=== PATIENT | male | born 1955 | race Caucasian/White ===

== ENCOUNTER 2020-03-27 06:18 | Outpatient (CLI) | payer MEDICARE, OTHER ==
[2020-03-27 11:01] LABS: #Eosinphils 0.1 thou/uL (0.0-0.7); #Lymphocytes 1.6 thou/uL (1.20-3.40); #Monocytes 0.5 thou/uL (0.11-0.59); #Neutrophils 3.2 thou/uL (1.40-6.50); %Basophils 0.5 % (0.0-1.0); %Eosinophils 1.2 % (0.0-10.0); %Lymphocytes 29.2 % (21.0-51.0); %Monocytes 10.1 % (0.0-10.0); Hemoglobin 15.8 g/dL (14.0-18.0); Mean Corpuscular HGB CONC 33.2 g/dL (32.0-36.0); Mean Corpuscular Hemoglobin 33.4 pg (27.0-31.0); Mean Platelet Volume 9.3 fL (7.4-10.4); Platelet Count 158 thou/uL (130-400); RBC Distribution Width 11.8 % (11.5-14.5); Red Blood Cell (RBC) Count 4.72 mill/uL (4.70-6.10); White Blood Cell (WBC) Count 5.4 thou/uL (4.8-10.8)
--- NOTE | 2020-03-27 21:10 | EKG ---
Test Reason : Blood Pressure : / mmHG Vent. Rate : 059 BPM Atrial Rate : 059 BPM P-R Int : 144 ms QRS Dur : 090 ms QT Int : 380 ms P-R-T Axes : 059 047 009 degrees QTc Int : 376 ms Sinus bradycardia Otherwise normal ECG No previous ECGs available Confirmed by Magalie SHEPHERD ([id number]) on 03/27/2020 9:10:01 PM Referred By: JOSE Confirmed By:Magalie SHEPHERD
[2020-03-28 11:15] LABS: SARS-CoV-2 MS2 Positive; SARS-CoV-2 N Gene Negative; SARS-CoV-2 S Gene Negative; SARS-CoV-2 orf1ab Negative
== END 2020-03-27 06:19 | disposition home or self-care (01) ==
LOC: LABBT 06:18
PROVIDERS: ATTEND Orthopaedic Surgery Hand Surgery
DX: Z01.818 Encounter for other preprocedural examination (principal); Z11.59 Encounter for screening for other viral diseases; G56.01 Carpal tunnel syndrome, right upper limb
CPT/HCPCS: 85025; 93005; U0003; 87635; 93010

== ENCOUNTER 2020-03-28 12:32 | Day surgery (SDC) | payer MEDICARE ==
[2020-03-27 10:02] VITALS: BMI 28.8
[2020-03-28] MEDS ORDERED: Norepinephrine 4 MG/4 ML VIAL ONE (14:26)
[2020-03-28] MEDS ORDERED: Lidocaine 1% PF 5 ML VIAL ONE (15:39)
[2020-03-28] MEDS ORDERED: PROPOFOL 200 MG/20 ML VIAL ONE (15:39)
[2020-03-28] MEDS ORDERED: Ondansetron PF 4 MG/2 ML Vial ONE (15:39)
[2020-03-28] MEDS ORDERED: PHENYLEPHRINE-NS 100 MCG/ML 10 ML SYRINGE ONE (15:39)
[2020-03-28] MEDS ORDERED: Bupivacaine PF 0.5% 30 ML VIAL ONE (16:09)
[2020-03-28] MEDS ORDERED: Betamet Acet/Betamet Na Ph 30 MG/5 ML VIAL ONE (16:09)
[2020-03-28] MEDS ORDERED: Bacitracin Zinc Ointment 30 gm TUBE ONE (16:09)
[2020-03-28] MEDS ORDERED: Midazolam HCl 2 mg/2 ml Vial ONE (16:17)
[2020-03-28] MEDS ORDERED: Fentanyl 100 MCG/2 ML VIAL ONE (16:17)
[2020-03-28] MEDS ORDERED: Ketorolac Tromethamine 30 MG/ML VIAL ONE (17:47)
--- NOTE | 2020-03-29 00:40 | OP ---
DATE OF PROCEDURE: 03/28/2020 PREOPERATIVE DIAGNOSIS: Right carpal tunnel syndrome. POSTOPERATIVE DIAGNOSIS: Right carpal tunnel syndrome. FINDINGS: Very tight transverse carpal ligament with early flattening of the median nerve of 1.5 cm area in the center of the transverse carpal ligament. No stippling at this point. PROCEDURE PERFORMED: Right carpal tunnel release/median nerve neuroplasty of the right wrist. SPECIMEN REMOVED: None. TOURNIQUET TIME: Fifteen minutes. ESTIMATED BLOOD LOSS: 5 mL. FINDINGS: Again, tight transcarpal ligament. DESCRIPTION OF PROCEDURE: After successful general endotracheal anesthesia, the limb was prepped and draped. Then, we had time-out done appropriately, we outlined incision in line with the ring finger tip from mediolateral and as far distal as Lamb's cardinal line for proximal 5 mm proximal to the volar wrist flexion crease. We then carried the incision through skin and subcutaneous tissue until we reached the transverse carpal ligament. We dissected, placed self-retained retractor again and began with a [place] blade over the transcarpal ligament. First, we opened it from the midpoint distally protecting all the digital nerve branches and it was completely released distally. Then, we used a combination of [place] blade and tenotomy scissors for elevation of the subcutaneous skin, visualized the entire transcarpal ligament and opened under direct visualization using those two instruments. We then checked and it was very tight constriction early hourglass of 1.5 cm area in the center of the median nerve within the carpal canal. Patient had 5 mL Celestone placed along the median nerve. The wound was closed after obtaining hemostasis and deflated tourniquet with 4-0 nylon interrupted mattress pattern. No evidence of anesthetic or operative complication. A total of 15 mL of 0.5% Marcaine given. No epinephrine. Bulky soft dressing was applied. He left the operating room without evidence of anesthetic or operative complication. Job ID: [id number]
== END 2020-03-28 19:00 | disposition home or self-care (01) ==
LOC: SDC 12:32
PROVIDERS: ATTEND Orthopaedic Surgery Hand Surgery
PROC: 01N50ZZ Release Median Nerve, Open Approach (ICD-10-PCS; principal; 2020-03-28)
DX: G56.03 Carpal tunnel syndrome, bilateral upper limbs (principal); I10 Essential (primary) hypertension; E78.5 Hyperlipidemia, unspecified; Z79.82 Long term (current) use of aspirin; Z79.899 Other long term (current) drug therapy; Z88.5 Allergy status to narcotic agent; Z87.891 Personal history of nicotine dependence
CPT/HCPCS: J0690; J0702; J1885; J2001; J2250; J2405; J2704; J3010; S0020

== ENCOUNTER 2020-10-09 06:11 | Day surgery (SDC) | payer MEDICARE ==
[2020-10-08 10:58] VITALS: BMI 26.6
[2020-10-09] MEDS ORDERED: Fentanyl 100 MCG/2 ML VIAL ONE (08:59)
[2020-10-09] MEDS ORDERED: Midazolam HCl 2 mg/2 ml Vial ONE (08:59)
[2020-10-09] MEDS ORDERED: Bacitracin Zinc Ointment 30 gm TUBE ONE (09:10)
[2020-10-09] MEDS ORDERED: Bupivacaine PF 0.5% 30 ML VIAL ONE (09:10)
[2020-10-09] MEDS ORDERED: Sodium Chloride 0.9% 10 ML ONE (09:10)
[2020-10-09] MEDS ORDERED: Betamet Acet/Betamet Na Ph 30 MG/5 ML VIAL ONE (09:11)
[2020-10-09] MEDS ORDERED: Ketorolac Tromethamine 30 MG/ML VIAL ONE (11:52)
[2020-10-09] MEDS ORDERED: Ondansetron PF 4 MG/2 ML Vial ONE (11:52)
[2020-10-09] MEDS ORDERED: Lidocaine 1% PF 5 ML VIAL ONE (11:52)
[2020-10-09] MEDS ORDERED: PROPOFOL 200 MG/20 ML VIAL ONE (11:52)
[2020-10-09] MEDS ORDERED: PHENYLEPHRINE-NS 100 MCG/ML 10 ML SYRINGE ONE (11:52)
[2020-10-09] MEDS ORDERED: Dexamethasone 20 MG/5 ML VIAL ONE (11:52)
--- NOTE | 2020-10-09 15:22 | OP ---
DATE OF PROCEDURE: 10/09/2020 PREOPERATIVE DIAGNOSIS: Left carpal tunnel syndrome. POSTOPERATIVE DIAGNOSIS: Left carpal tunnel syndrome. FINDINGS: Very tight transverse carpal ligament with early flattening, but no stippling or hourglass formation of the median nerve and no excessive tenosynovitis. PROCEDURE PERFORMED: Left carpal tunnel release. TOURNIQUET TIME: 18 minutes. ESTIMATED BLOOD LOSS: 5 mL. SPECIMEN REMOVED: None. FINDINGS: Again, tight transverse carpal ligament. INDICATIONS: Failed conservative treatment with positive EMG and exam. DESCRIPTION OF PROCEDURE: After successful general LMA technique, the limb was prepped and draped. Time-out done appropriately. We outlined a mini 2.5 cm incision, centered on the ring finger from medial to lateral, as far distal as Lamb's cardinal line, as far proximal as 5 mm distal to the volar wrist flexion crease. We exsanguinated the limb, and gave injection of 10 mL of 0.5% Marcaine prior to incision and 10 after for a field block. No epinephrine. We then with the limb exsanguinated, tourniquet inflated to 250 mmHg pressure, made incision through skin and subcutaneous tissue and retracted glabrous skin. We exposed transverse carpal ligament, put a self-retaining [place] retractor inside the incision. Using the help of two [place] retractors, exposed transverse carpal ligament in its midline and then opened it from the midportion distally under direct visualization with a combination of [place] blade and the tenotomy scissors. We then did the same from the midportion proximally with the same combination of instruments, using direct visualization as well as both tenotomy scissor and the [place] blade. The patient then had 4 mL of Celestone dripped over the median nerve with the findings of mild flattening, but no hourglass formation or stippling was seen. At the same time, we were able to release the tourniquet and obtain hemostasis. We then closed the incision with interrupted 4-0 nylon in a simple pattern and the patient left the operating room without evidence of anesthetic or operative complication. Job ID: [id number]
== END 2020-10-09 11:45 | disposition home or self-care (01) ==
LOC: SDC 06:11
PROVIDERS: ATTEND Orthopaedic Surgery Hand Surgery
PROC: 01N50ZZ Release Median Nerve, Open Approach (ICD-10-PCS; principal; 2020-10-09)
DX: G56.02 Carpal tunnel syndrome, left upper limb (principal); I10 Essential (primary) hypertension; E78.5 Hyperlipidemia, unspecified; M10.9 Gout, unspecified; G89.29 Other chronic pain; M54.9 Dorsalgia, unspecified; Z87.891 Personal history of nicotine dependence; Z79.82 Long term (current) use of aspirin; Z79.899 Other long term (current) drug therapy; Z88.5 Allergy status to narcotic agent; Z98.890 Other specified postprocedural states
CPT/HCPCS: J0690; J0702; J1100; J1885; J2250; J2405; J2704; J3010; S0020

== ENCOUNTER 2023-10-09 09:49 | Outpatient (CLI) | payer MEDICARE | END 2023-10-09 09:50 | disposition home or self-care (01) | LOC: SCSRAD 09:49 | PROVIDERS: ATTEND Neurological Surgery | DX: M48.02 Spinal stenosis, cervical region (principal); Z98.1 Arthrodesis status | CPT/HCPCS: 72020 ==